=== PATIENT | male | born 1980 | race Caucasian/White ===

== ENCOUNTER 2019-04-23 23:10 | Emergency (ER) | payer BC, OTHER ==
[2019-04-23 23:15] VITALS: BP 127/86; PULSE 89; TEMP 98; BMI 29.5
[2019-04-23] MEDS ORDERED: IBUPROFEN 400 MG TABLET (FP) PO ONE ×2 (23:52→23:53)
--- NOTE | 2019-04-24 00:11 | PDOC ---
History of Present Illness - General History Source: Patient Exam Limitations: No Limitations <Carol Maxwell - Last Filed: 04/24/19 00:06> <Mariama Russo - Last Filed: 04/24/19 20:16> - General Chief Complaint: Injury Stated Complaint: ANKLE INJURY Time Seen by Provider: 04/23/19 23:20 Past History - Past Medical History COPD: No - Psycho Social/Smoking Cessation Hx Smoking History: Never smoked <AlissaCarol palomares - Last Filed: 04/24/19 00:06> <Mariama uRsso - Last Filed: 04/24/19 20:16> - Past Medical History Allergies/Adverse Reactions: Allergies Allergy/AdvReac Type Severity Reaction Status Date / Time No Known Allergies Allergy Verified 04/23/19 23:15 *Physical Exam - Vital Signs Last Vital Signs Temp Pulse Resp BP Pulse Ox 98 F 89 18 127/86 99 04/23/19 23:12 04/23/19 23:12 04/23/19 23:12 04/23/19 23:12 04/23/19 23:12 - Physical Exam General Appearance: No: Apparent Distress Extremity: positive: Other (no calf tenderness, +L arita test, no deformity of extremities, LLE neurovascularly intact). negative: Swelling, Calf Tenderness, Erythema Integumentary: negative: Swelling, Ecchymosis, Bruising Neurologic: positive: Alert, Normal Mood/Affect <AlissaCarol - Last Filed: 04/24/19 00:06> - Vital Signs Last Vital Signs Temp Pulse Resp BP Pulse Ox 98 F 89 18 127/86 99 04/23/19 23:12 04/23/19 23:12 04/23/19 23:12 04/23/19 23:12 04/23/19 23:12 <RussoMariama Jara - Last Filed: 04/24/19 20:16> Procedures - Splinting Splint Location: Left: Ankle Pre-Proc Neuro Vasc Exam: normal Hand-Made Type: orthoglass Splint Type: Yes: Short Leg Post-Proc Neuro Vasc Exam: normal Larry Bandage: yes Sling: No Complications: No <Carol Maxwell - Last Filed: 04/24/19 00:06> ED Treatment Course - Medications Given in the ED: ED Medications Discontinued Medications Generic Name Dose Route Start Last Admin Trade Name Freq PRN Reason Stop Dose Admin Ibuprofen 800 mg 04/23/19 23:52 04/23/19 23:57 Motrin - PO 04/23/19 23:53 800 mg ONCE ONE Administration <Carol Maxwell - Last Filed: 04/24/19 00:06> - Medications Given in the ED: ED Medications Discontinued Medications Generic Name Dose Route Start Last Admin Trade Name Freq PRN Reason Stop Dose Admin Ibuprofen 800 mg 04/23/19 23:52 04/23/19 23:57 Motrin - PO 04/23/19 23:53 800 mg ONCE ONE Administration <Mariama Russo - Last Filed: 04/24/19 20:16> Medical Decision Making - Medical Decision Making 38 y/o M with no sig pmh presents with L ankle injury today. Was playing soccer and jumped, when he heard a pop. No direct trauma occurred. Denies fever, numbness/tingling Likely achilles tendon rupture Placed in short leg splint, given crutches, motrin for pain 04/24/19 00:07 <Carol Maxwell - Last Filed: 04/24/19 00:06> - Medical Decision Making The patient was seen and evaluated in conjunction with midlevel provider under my direct supervision, ancillary studies were reviewed. I agree with the plan as outlined TIERRA Maxwell. HPI, workup/dispo as outlined. VS reviewed, wnl. achilles tendon rupture splinted in plantar flexion. crutches ortho followup anticipate discharge, pcp followup, return precautions 04/24/19 20:13 <Mariama Russo - Last Filed: 04/24/19 20:16> Discharge - Discharge Information Problems reviewed: Yes - Admission No - Additional Discharge Information Prescription Drug Monitoring Program (I-STOP) results: I-STOP not reviewed <Carol Maxwell - Last Filed: 04/24/19 00:06> <Mariama Russo - Last Filed: 04/24/19 20:16> - Discharge Information Clinical Impression/Diagnosis: Achilles tendon rupture Qualifiers: Encounter type: initial encounter Laterality: left Qualified Code(s): S86.012A - Strain of left Achilles tendon, initial encounter Condition: Stable Disposition: HOME - Follow up/Referral Referrals: Reed Rodas MD [Staff Physician] - 2 Days Tomas Gross DO [Staff Physician] - 2 Days - Patient Discharge Instructions Patient Printed Discharge Instructions: DI for Achilles Tendon Rupture Additional Instructions: Thank you for choosing [facility]. It was a pleasure taking care of you. You may take Motrin 600 mg every 6 hours by mouth as needed for mild to moderate pain. Take Motrin with food. Do not put weight on your left leg Keep splint dry Follow-up with orthopedics in 2 days Return to the Emergency Department if your symptoms worsen or persist, you have fever, change in color of extremities, severe pain or other concerning symptoms.
== END 2019-04-24 00:16 | disposition home or self-care (01) ==
LOC: JER 23:10
PROC: 2W3RX1Z Immobilization of Left Lower Leg using Splint (ICD-10-PCS; principal; 2019-04-23)
DX: S86.012A Strain of left Achilles tendon, initial encounter (principal); X50.1XXA Overexertion from prolonged static or awkward postures, initial encounter; Y93.66 Activity, soccer; Y92.322 Soccer field as the place of occurrence of the external cause; Y99.8 Other external cause status
CPT/HCPCS: 99282-25